=== PATIENT | female | born 1945 | race Caucasian/White ===

== ENCOUNTER 2016-12-31 05:23 | Inpatient (IN) | payer OTHER, MEDICARE ==
[2016-12-16 12:58] LABS: HEMATOCRIT 38.7 % (37.0-47.0); HEMOGLOBIN 13.1 gm/dL (12.0-15.0); MCH 31.4 pg (26.0-34.0); MCHC 33.9 g/dL (28.0-37.0); MCV 92.8 fL (80.0-100.0); RBC 4.17 mil/uL (4.20-5.00); RDW 13.4 % (10.5-14.5); WBC 4.9 thou/uL (4.0-11.0)
[2016-12-16 13:00] LABS: URINE BILIRUBIN NEGATIVE (Negative); URINE BLOOD TRACE (Negative); URINE COLOR YELLOW; URINE GLUCOSE-RANDOM* NEGATIVE (Negative); URINE KETONES NEGATIVE (Negative); URINE LEUKOCYTES-REFLEX NEGATIVE (Negative); URINE PROTEIN (DIPSTICK) NEGATIVE (Negative); URINE UROBILINOGEN 0.2 E.U./dl (0.2-1.0)
[2016-12-16 13:07] LABS: ALBUMIN 4.1 g/dL (3.4-5.0)
[2016-12-16 13:09] LABS: PROTIME 9.8 Seconds (9.3-11.4)
[~2016-12-31] VITALS: Ht 162.6 cm; Wt 78.0 kg
[2016-12-31] VITALS (9 sets, daily range): BP systolic 107–128; BP diastolic 51–104
--- NOTE | ~2016-12-31 | O ---
[facility] [place] [address] OPERATIVE REPORT Name: DELMI FAIR Room #: 403-P ADM IN M.R.#: [id number] Admission: 12/31/16 Attend Phys: Long Lilly MD Discharge: Date of : 45 Report #: [id number] THIS REPORT FOR: //name// CC: Harry Lilly DATE OF SERVICE: 12/31/2016 PREOPERATIVE DIAGNOSIS: Right knee degenerative joint disease, severe. POSTOPERATIVE DIAGNOSIS: Right knee degenerative joint disease, severe. OPERATIVE PROCEDURE: Right total knee arthroplasty. SURGEON: Long Lilly MD ROD FINISHER: DARY Cornejo ANESTHETIC: General. INDICATIONS: See hospital H and P. IMPLANTS UTILIZED: I used a DePuy PFC knee system. I used a cruciate retaining femoral component for a size 4 narrow, size 3 tibial tray with a 10 mm insert and a 38 mm oval dome patella. DESCRIPTION OF PROCEDURE: After adequate general anesthesia had been obtained, the patient's right lower extremity was prepped and draped in the usual meticulous sterile fashion. Limb was exsanguinated with gravity, tourniquet inflated to 300 torr. Anterior midline incision was made, subQ divided sharply. Hemostasis obtained with cautery. Medial parapatellar incision was made. Infrapatellar fat pad excised. Medial release performed. The knee was flexed, we drilled the distal femur. This hole was enlarged, irrigated, suctioned, and the intramedullary guide placed the length of the femur. Distal femoral cutting guide pinned the appropriate height in appropriate rotation and distal femoral cut was made. The measuring device indicated that a size 4 was appropriate size for this patient. We marked the distal femur, impacted the cutting guide into place and the anterior, posterior and chamfer cuts were made. Rongeur was used to remove additional osteophytes. At this time, the ACL was transected, tibia translated anteriorly and menisci were excised. The drill was used to drill central portion of the tibia. This hole was enlarged, irrigated, suctioned, and the intramedullary guide placed the full length of the tibia. The proximal tibial cutting guide placed at appropriate height. Proximal tibia cut was made, 3 tray gave us the best [address] [address] OPERATIVE REPORT Name: DELMI FAIR SELENA Room #: 403-P [facility] IN .R.#: [id number] Admission: 12/31/16 Attend Phys: Long Lilly MD Discharge: Date of : 45 Report #: [id number] coverage on the tibia. We put the 4 narrow trial in, upon the femur, the 3 tray on the tibia with 10 spacer, the knee had full extension, full flexion, and good stability parameters in both flexion and extension. Patella was then addressed, it was measured, cutting guide clamped into place, patellar cut was made. A 38 template gave us the best coverage. Pedicles were drilled, trial component put in position. It tracked normally. The knee was taken through several cycles of flexion and extension. Tibial tray rotation marked, distal femur drilled. Trial components were removed. We then made the tibial keel cuts, irrigated the knee with both pulse lavage and antibiotic irrigation and then placed bone plugs in the proximal tibia and distal femur. The cement was vacuum mixed and when it reached the appropriate consistency, the knee was thoroughly dried, the tibial tray was cemented in place. Excess cement was removed. Polyethylene was impacted in place and the femur impacted in place and the knee was taken out to 30 degrees of flexion with uniform compression placed across components. Patellar button was then cemented into place. The cement was allowed to fully cure. When it had done so, the knee was irrigated and inspected and dried, placed drains superolaterally both deep and superficial. She did have a slight amount of peel of her medial patellar tendon and so to ensure no risk of tendon disruption, I placed a 5.5 [employer]posite Arthrex anchor medial to the tendon and placed 2 sutures to the tendon and tied them down to the bone with good reapproximation of the tendon down to its [place] insertion. The retinaculum was closed with a combination of interrupted [id number]-[id number] #1 Vicryl as well as running #1 Tevdek. SubQ closed with 2-0 Monocryl, skin closed with maria ines. Sterile compressive dressing was applied. Tourniquet deflated. <ELECTRONICALLY SIGNED> By: Long Lilly MD 01/01/17 [id number] Long Lilly MD /nt
[~2016-12-31 05:23] MED LIST: CALCIUM500 MG PO; CELEBREX 200 M200 M1 PO; COZAAR 50 MG TA50 M2 PO; CRESTOR10 MG PO; EFFEXOR XR75 MG PO; FLEXERIL PO; FLONASE 0.05%50 MCG NASAL; HAIR, SKIN & N1 EAC2 PO; HYDROCHLOROTHIA25 M2 PO; KLOR-CON 1010 MEQ PO; PANTOPRAZOLE SO40 M1 PO; REQUIP0.5 MG PO; VITAMIN D-32000 UNIT PO; ZYRTEC10 M5 PO
[2017-01-01] VITALS (7 sets, daily range): BP systolic 105–122; BP diastolic 26–58
[2017-01-01 04:07] LABS: HEMATOCRIT 33.6 % (37.0-47.0); HEMOGLOBIN 11.2 gm/dL (12.0-15.0); MCH 31.1 pg (26.0-34.0); MCHC 33.2 g/dL (28.0-37.0); MCV 93.7 fL (80.0-100.0); RBC 3.59 mil/uL (4.20-5.00); RDW 13.4 % (10.5-14.5); WBC 9.8 thou/uL (4.0-11.0)
[2017-01-02 03:25] VITALS: BP 144/35
[2017-01-02 05:57] LABS: HEMATOCRIT 31.8 % (37.0-47.0); HEMOGLOBIN 10.5 gm/dL (12.0-15.0); MCH 31.2 pg (26.0-34.0); MCHC 33.1 g/dL (28.0-37.0); MCV 94.3 fL (80.0-100.0); RBC 3.38 mil/uL (4.20-5.00); RDW 13.8 % (10.5-14.5); WBC 8.1 thou/uL (4.0-11.0)
[2017-01-02 09:00] VITALS: BP 117/48
[2017-01-02] MEDS ORDERED: XARELTO10 MG PO (10:46)
[2017-01-02 11:53] VITALS: BP 114/44
[2017-01-02 14:05] VITALS: BP 117/51
[2017-01-02 18:51] VITALS: BP 122/59
[2017-01-03 03:51] VITALS: BP 115/55
[2017-01-03 03:58] LABS: CALCIUM 8.7 mg/dL (8.5-10.1); CREATININE 0.8 mg/dL (0.6-1.0)
[2017-01-03 04:04] LABS: HEMATOCRIT 32.2 % (37.0-47.0); HEMOGLOBIN 10.8 gm/dL (12.0-15.0); MCH 31.3 pg (26.0-34.0); MCHC 33.7 g/dL (28.0-37.0); MCV 93.1 fL (80.0-100.0); PLATELET COUNT 191 thou/uL (150-400); RBC 3.46 mil/uL (4.20-5.00); RDW 13.4 % (10.5-14.5)
[2017-01-03 04:09] LABS: MANUAL DIFF YES
[2017-01-03 08:16] VITALS: BP 118/30
[2017-01-03 08:34] VITALS: BP 118/30
[2017-01-03 08:43] LABS: ABSOLUTE NEUTROPHILS 4.4 thou/uL (1.4-8.2); TOTAL CELL COUNT 100
[2017-01-03 08:44] LABS: PLATELET ESTIMATE NORMAL
== END 2017-01-03 14:17 | disposition home health service (06) | DRG 470 ==
LOC: 4N 05:23 → TBA 05:23 → PRE 06:09 → 4N 12:45 → ENTRNSPT 01-03 13:57 → EDTRNSPTSTS 01-03 14:00 → 4N 01-03 14:17
PROVIDERS: Family Medicine; Orthopaedic Surgery
PROC: 0SRC0J9 Replacement of Right Knee Joint with Synthetic Substitute, Cemented, Open Approach (ICD-10-PCS; principal; 2016-12-31)
DX: M17.11 Unilateral primary osteoarthritis, right knee (principal); I10 Essential (primary) hypertension; E78.5 Hyperlipidemia, unspecified; K21.9 Gastro-esophageal reflux disease without esophagitis; Z96.652 Presence of left artificial knee joint; F32.9 Major depressive disorder, single episode, unspecified; E78.00 Pure hypercholesterolemia, unspecified; I95.9 Hypotension, unspecified; Z88.6 Allergy status to analgesic agent; Z88.8 Allergy status to other drugs, medicaments and biological substances; Z91.040 Latex allergy status; Z98.1 Arthrodesis status; Z98.42 Cataract extraction status, left eye; Z98.41 Cataract extraction status, right eye; Z90.49 Acquired absence of other specified parts of digestive tract; Z86.711 Personal history of pulmonary embolism
CPT/HCPCS: 10790; 50010; 50101; 50415; 50612; 50954; 51130; 51225; 51320; 51412; 51771; 52001; 53000; 53078; 53364; 56525; 56527; 62110; 62900; 70005